=== PATIENT | female | born 1935 | race Caucasian/White ===

== ENCOUNTER 2017-09-09 13:26 | Inpatient (IN) | payer OTHER ==
[~2017-09-09] VITALS: Ht 154.9 cm; Wt 46.5 kg
[~2017-09-09 13:26] MED LIST: ACETAMINOPHEN325 M3 PO; ALPRAZOLAM0.5 MG PO; BUPROPION XL300 MG PO; CALCIUM 500 WI1 EAC2 PO; CHILD ASPIRIN81 M1 PO; CLARITIN,ALAVAR10 MG PO; FLOVENT 11120 INHALA IH; LOVASTATIN20 MG PO; LUMIGAN 0.50 DROP/22 BOTH EYES; NEXIUM40 MG PO; ONDANSETRON ODT4 MG PO; PRISTIQ50 MG PO; QUETIAPINE FUM300 MG PO; VENLAFAXINE HCL75 M3 PO; VENTOLIN HFA18 GM IH; XANAX0.5 MG PO; ZOFRAN4 MG PO; [UNRECOGNIZED DRUG - OTHER] BOTH EYES
[2017-09-09 14:14] LABS: HEMATOCRIT 43.2 % (36.0-46.0); MCH 30.9 PG (29.0-34.0); MCHC 33.6 G/DL (30.0-36.0); MCV 91.9 FL (83-99); MEAN PLAT.VOLUME 9.2 uM^3 (9.5-12.4); PLATELET COUNT 240 K/uL (156-360); RBC DIS.WIDTH-CV 13.2 % (11.8-14.6); RBC DIS.WIDTH-SD 45.1 % (39-53); WHITE BLOOD COUNT 8.6 K/uL (4.1-10.2)
[2017-09-09 14:21] LABS: CHLORIDE 101 mEq/L (99-109); POTASSIUM 3.5 mEq/L (3.7-5.4)
[2017-09-09 14:22] LABS: SODIUM 138 mEq/L (136-147)
[2017-09-09 14:23] LABS: GLUCOSE 115 mg/dL (70-99)
[2017-09-09 14:25] LABS: ANION GAP 9 MEQ/L (2-14)
[2017-09-09 14:27] LABS: GFR ESTIMATE (CALCULATED) > 59 mL/min/
[2017-09-09 14:28] LABS: UREA NITROGEN (BUN) 6 mg/dL (9-23)
[2017-09-09 15:29] LABS: ADD MIUA? NO; BILIRUBIN NEGATIVE; BLOOD NEGATIVE; COLOR YELLOW ((YELLOW)); GLUCOSE (STRIP) NEGATIVE; KETONES 5; LEUKOCYTES NEGATIVE; NITRITE NEGATIVE; PROTEIN (STRIP) NEGATIVE; SPECIFIC GRAVITY 1.006 (1.000-1.030); UCUL ADDED? NO; UROBILINOGEN 0.2 MG/DL (0.2-1.0)
[2017-09-09] MEDS ORDERED: BENZONATATE100 MG PO (20:26)
[2017-09-09] MEDS ORDERED: DOMP10T PO (20:27)
[2017-09-09 23:03] LABS: LIPASE 15 U/L (1.0-51.0)
[2017-09-09 23:38] VITALS: BP 159/84
[2017-09-10 04:04] VITALS: BP 126/77
[2017-09-10 06:14] LABS: HEMATOCRIT 40.2 % (36.0-46.0); MCH 31.2 PG (29.0-34.0); MCHC 33.3 G/DL (30.0-36.0); MCV 93.5 FL (83-99); MEAN PLAT.VOLUME 9.6 uM^3 (9.5-12.4); PLATELET COUNT 207 K/uL (156-360); RBC DIS.WIDTH-CV 13.4 % (11.8-14.6); RBC DIS.WIDTH-SD 46.1 % (39-53); WHITE BLOOD COUNT 6.4 K/uL (4.1-10.2)
[2017-09-10 06:39] LABS: ALKALINE PHOSPHATASE 58 IU/L (3-129); ANION GAP 7 MEQ/L (2-14); CHLORIDE 104 MEQ/L (99-109); GFR ESTIMATE (CALCULATED) > 59 mL/min/; GLUCOSE 75 mg/dL (70-99); HDL CHOLESTEROL 49 MG/DL (Desirable>=50); LDL CHOLESTEROL 60 mg/dL (Desirable<100); NON-HDL CHOLESTEROL 77 mg/dL (Desirable<160); POTASSIUM 3.7 MEQ/L (3.7-5.4); SAMPLE HEMOLYSIS CHECK 0; SAMPLE ICTERIC CHECK 0; SAMPLE LIPEMIA CHECK 0; SODIUM 143 MEQ/L (136-147); TOTAL BILIRUBIN 0.6 MG/DL (0.0-1.0); TOTAL CHOLESTEROL 126 mg/dL (Desirable<200); TRIGLYCERIDES 87 MG/DL (Normal: <150); UREA NITROGEN (BUN) 5 mg/dL (9-23)
[2017-09-10 07:01] LABS: Estimated Average Glucose 117 mg/dL (70-123); HEMOGLOBIN A1c (GLYCOHEMOGLOB) 5.7 % HGB (Below 5.7)
[2017-09-10 07:39] VITALS: BP 132/80
[2017-09-10 07:52] LABS: ERTH.SED.RATE 4 MM/HR (0-30)
[2017-09-10 09:41] LABS: LYME DISEASE SEROLOGY SCREEN NEGATIVE (NEGATIVE); TREPONEMA ANTIBODY NEGATIVE (NEGATIVE)
[2017-09-10 12:18] VITALS: BP 159/91
[2017-09-10 16:00] VITALS: BP 144/91
[2017-09-10 19:16] VITALS: BP 145/85
[2017-09-11 00:04] VITALS: BP 145/85
[2017-09-11 07:17] VITALS: BP 173/87
[2017-09-11 10:39] VITALS: BP 128/79
[2017-09-11 15:10] VITALS: BP 136/94
[2017-09-11 23:54] VITALS: BP 137/88
[2017-09-12 07:49] VITALS: BP 149/93
[2017-09-12 15:30] VITALS: BP 158/80
[2017-09-13 00:12] VITALS: BP 110/66
[2017-09-13 07:53] VITALS: BP 130/65
[2017-09-13 16:18] VITALS: BP 137/77
[2017-09-13 23:39] VITALS: BP 137/83
[2017-09-14 07:00] LABS: HEMATOCRIT 43.9 % (36.0-46.0); MCH 30.4 PG (29.0-34.0); MCHC 32.6 G/DL (30.0-36.0); MCV 93.2 FL (83-99); MEAN PLAT.VOLUME 9.5 uM^3 (9.5-12.4); RBC DIS.WIDTH-CV 13.4 % (11.8-14.6); RBC DIS.WIDTH-SD 46.2 % (39-53); RED BLOOD COUNT 4.71 M/uL (3.80-5.20); WHITE BLOOD COUNT 7.2 K/uL (4.1-10.2)
[2017-09-14 07:18] LABS: ANION GAP 7 MEQ/L (2-14); CHLORIDE 105 MEQ/L (99-109); GFR ESTIMATE (CALCULATED) > 59 mL/min/; GLUCOSE 99 mg/dL (70-99); SAMPLE HEMOLYSIS CHECK 0; SAMPLE ICTERIC CHECK 0; SAMPLE LIPEMIA CHECK 0; SODIUM 144 MEQ/L (136-147); UREA NITROGEN (BUN) 8 mg/dL (9-23)
[2017-09-14 07:28] LABS: PLATELET COUNT 280 K/uL (156-360)
[2017-09-14 07:33] VITALS: BP 129/75
[2017-09-14 16:09] VITALS: BP 141/93
[2017-09-15 00:04] VITALS: BP 130/73
[2017-09-15 06:53] VITALS: BP 127/81
[2017-09-15 15:14] VITALS: BP 119/68
[2017-09-16 00:07] VITALS: BP 130/81
[2017-09-16 06:57] VITALS: BP 115/81
[2017-09-16 15:17] VITALS: BP 134/86
[2017-09-16 23:49] VITALS: BP 137/86
[2017-09-17 07:51] VITALS: BP 111/74
[2017-09-17 16:28] VITALS: BP 146/92
[2017-09-18 00:05] VITALS: BP 119/72
[2017-09-18 07:10] VITALS: BP 124/78
[2017-09-18 15:15] VITALS: BP 160/99
[2017-09-19 00:39] VITALS: BP 137/73
[2017-09-19 07:07] VITALS: BP 137/83
[2017-09-19 15:26] VITALS: BP 129/76
[2017-09-20 00:26] VITALS: BP 110/69
[2017-09-20 08:03] VITALS: BP 132/76
[2017-09-20 17:26] VITALS: BP 141/88
[2017-09-20 23:36] VITALS: BP 134/82
[2017-09-21 07:50] VITALS: BP 131/73
[2017-09-21] MEDS ORDERED: DONEPEZIL HCL5 MG PO (11:23)
[2017-09-21] MEDS ORDERED: QUETIAPINE FUM100 MG PO (11:24)
[2017-09-21] MEDS ORDERED: POLYETHYLENE GL17 GM PO (11:26)
[2017-09-21] MEDS ORDERED: FAMOTIDINE20 MG PO (11:26)
[2017-09-21 17:59] VITALS: BP 124/74
[2017-09-22 00:23] VITALS: BP 139/83
[2017-09-22 08:48] VITALS: BP 141/79
[2017-09-22 16:34] VITALS: BP 127/72
[2017-09-22 23:24] VITALS: BP 134/69
[2017-09-23 08:00] VITALS: BP 128/83
[2017-09-23 16:12] VITALS: BP 138/79
[2017-09-24 00:02] VITALS: BP 120/85
[2017-09-24 08:00] VITALS: BP 125/84
[2017-09-24] MEDS ORDERED: BUPROPION XL300 MG PO (11:34)
[2017-09-24] MEDS ORDERED: VENLAFAXINE HCL75 M3 PO (11:34)
[2017-09-24] MEDS ORDERED: [UNRECOGNIZED DRUG - OTHER] BOTH EYES (11:34)
[2017-09-24] MEDS ORDERED: DOMP10T PO (11:34)
[2017-09-24] MEDS ORDERED: LUMIGAN 0.50 DROP/22 BOTH EYES (11:34)
[2017-09-24] MEDS ORDERED: BENZONATATE100 MG PO (11:34)
[2017-09-24] MEDS ORDERED: POLYETHYLENE GL17 GM PO (11:34)
[2017-09-24] MEDS ORDERED: LOVASTATIN20 MG PO (11:34)
[2017-09-24] MEDS ORDERED: FAMOTIDINE20 MG PO (11:34)
[2017-09-24] MEDS ORDERED: DONEPEZIL HCL5 MG PO (11:34)
[2017-09-24] MEDS ORDERED: QUETIAPINE FUM100 MG PO (11:34)
[2017-09-24] MEDS ORDERED: ONDANSETRON ODT4 MG PO (11:34)
[2017-09-24 16:04] VITALS: BP 136/91
[2017-09-25] MEDS ORDERED: POLYETHYLENE GL17 GM PO (16:08)
[2017-09-25] MEDS ORDERED: VENLAFAXINE HCL75 M3 PO (16:10)
[2017-09-25] MEDS ORDERED: LUMIGAN 0.50 DROP/22 BOTH EYES (16:12)
[2017-09-25] MEDS ORDERED: DOMP10T PO (16:13)
[2017-09-25] MEDS ORDERED: ONDANSETRON ODT4 MG PO (16:20)
[2017-09-25] MEDS ORDERED: REFRESH TEARS15 ML BOTH EYES (16:21)
== END 2017-09-24 16:09 | disposition home or self-care (01) | DRG 72 ==
LOC: EME 13:26 → EDOF 20:30 → 5SOUTH 20:30 → EDOF 20:30 → ENRESERV 20:33 → CANRESERV 20:50 → ENRESERV 21:27 → EDOF 23:18 → 5SOUTH 23:18 → ENPENDDIS 09-24 → 5SOUTH 09-24 16:09
PROVIDERS: Emergency Medicine; Physician Assistant; Physician Assistant Medical
DX: I67.9 Cerebrovascular disease, unspecified (principal); F01.50 Vascular dementia, unspecified severity, without behavioral disturbance, psychotic disturbance, mood disturbance, and anxiety; R27.0 Ataxia, unspecified; F32.9 Major depressive disorder, single episode, unspecified; E78.5 Hyperlipidemia, unspecified; G89.29 Other chronic pain; M54.9 Dorsalgia, unspecified; I10 Essential (primary) hypertension; J45.909 Unspecified asthma, uncomplicated; K21.9 Gastro-esophageal reflux disease without esophagitis; K22.4 Dyskinesia of esophagus; F41.9 Anxiety disorder, unspecified; G43.909 Migraine, unspecified, not intractable, without status migrainosus; R11.0 Nausea; Z79.82 Long term (current) use of aspirin; Z88.2 Allergy status to sulfonamides; Z88.0 Allergy status to penicillin; Z88.5 Allergy status to narcotic agent; Z91.040 Latex allergy status
CPT/HCPCS: 70450; 70544; 70551; 71010; 71020; 74220; 80048; 80053; 80061; 80306 90; 81003; 82607; 82746; 83036; 83605; 83690; 84443; 85027; 85651; 86618; 86780; 90839; 92610 GN; 93005; 93306; 93880; 97530 GO; 99281; 99285; G0378; J1650; J1885; J2060; J2405; J2765

== ENCOUNTER 2017-09-25 11:45 | Inpatient (IN) | payer OTHER ==
[~2017-09-25] VITALS: Ht 160 cm; Wt 44.8 kg
[~2017-09-25 11:45] MED LIST changes: +BENZONATATE100 MG PO; +DOMP10T PO; +DONEPEZIL HCL5 MG PO; +FAMOTIDINE20 MG PO; +POLYETHYLENE GL17 GM PO; +QUETIAPINE FUM100 MG PO
[2017-09-25 13:08] LABS: BASOPHIL COUNT 0.1 K/uL (0-0.1); EOSINOPHIL (%) 0.3 % (0-5); HEMATOCRIT 43.7 % (36.0-46.0); IMMATURE GRANULOCYTE (%) 0.5 % (0.0-0.7); IMMATURE GRANULOCYTE COUNT 0.1 K/uL; INSTRUMENT ABS NEUTROPHIL CT 7.9 K/uL; LYMPHOCYTE COUNT 1.4 K/uL (1.0-2.8); MCH 30.8 PG (29.0-34.0); MCHC 33.2 G/DL (30.0-36.0); MCV 92.8 FL (83-99); MEAN PLAT.VOLUME 9.3 uM^3 (9.5-12.4); MONOCYTE (%) 7.3 % (3-12); MONOCYTE COUNT 0.7 K/uL (0-0.8); NEUTROPHIL COUNT 7.9 K/uL (1.8-6.4); PLATELET COUNT 294 K/uL (156-360); RBC DIS.WIDTH-CV 13.5 % (11.8-14.6); RBC DIS.WIDTH-SD 45.9 % (39-53); RED BLOOD COUNT 4.71 M/uL (3.80-5.20); WHITE BLOOD COUNT 10.1 K/uL (4.1-10.2)
[2017-09-25 13:12] LABS: INTER. NORMALIZED RATIO 0.9; PROTHROMBIN TIME 10.7 SEC (10.2-12.9)
[2017-09-25 13:20] LABS: CHLORIDE 101 mEq/L (99-109); POTASSIUM 4.1 mEq/L (3.7-5.4); SODIUM 139 mEq/L (136-147)
[2017-09-25 13:22] LABS: GLUCOSE 120 mg/dL (70-99)
[2017-09-25 13:23] LABS: ANION GAP 12 MEQ/L (2-14)
[2017-09-25 13:26] LABS: GFR ESTIMATE (CALCULATED) > 59 mL/min/
[2017-09-25 13:27] LABS: UREA NITROGEN (BUN) 13 mg/dL (9-23)
[2017-09-25] MEDS ORDERED: POLYETHYLENE GL17 GM PO (16:08)
[2017-09-25] MEDS ORDERED: VENLAFAXINE HCL75 M3 PO (16:10)
[2017-09-25] MEDS ORDERED: LUMIGAN 0.50 DROP/22 BOTH EYES (16:12)
[2017-09-25] MEDS ORDERED: DOMP10T PO (16:13)
[2017-09-25] MEDS ORDERED: ONDANSETRON ODT4 MG PO (16:20)
[2017-09-25] MEDS ORDERED: REFRESH TEARS15 ML BOTH EYES (16:21)
[2017-09-25 21:34] VITALS: BP 155/65
[2017-09-25 21:51] VITALS: BP 155/65
[2017-09-26 04:04] VITALS: BP 102/61
[2017-09-26 07:02] LABS: HEMATOCRIT 30.1 % (36.0-46.0); MCH 31.8 PG (29.0-34.0); MCHC 33.6 G/DL (30.0-36.0); MCV 94.7 FL (83-99); PLATELET COUNT 221 K/uL (156-360); RED BLOOD COUNT 3.18 M/uL (3.80-5.20); WHITE BLOOD COUNT 10.4 K/uL (4.1-10.2)
[2017-09-26 07:29] LABS: ANION GAP 7 MEQ/L (2-14); CHLORIDE 107 MEQ/L (99-109); GFR ESTIMATE (CALCULATED) > 59 mL/min/; GLUCOSE 116 mg/dL (70-99); POTASSIUM 4.5 MEQ/L (3.7-5.4); SAMPLE HEMOLYSIS CHECK 0; SAMPLE ICTERIC CHECK 0; SAMPLE LIPEMIA CHECK 0; SODIUM 141 MEQ/L (136-147); UREA NITROGEN (BUN) 14 mg/dL (9-23)
[2017-09-26 08:09] VITALS: BP 114/64
[2017-09-26 11:43] VITALS: BP 119/72
[2017-09-26 15:38] VITALS: BP 143/63
[2017-09-26 19:59] VITALS: BP 113/56
[2017-09-27] VITALS (13 sets, daily range): BP systolic 108–148; BP diastolic 52–81
[2017-09-27 05:34] LABS: MCH 31.4 PG (29.0-34.0); MCHC 32.5 G/DL (30.0-36.0); MCV 96.6 FL (83-99); MEAN PLAT.VOLUME 10.1 uM^3 (9.5-12.4); PLATELET COUNT 156 K/uL (156-360); RBC DIS.WIDTH-CV 13.9 % (11.8-14.6); RBC DIS.WIDTH-SD 49.3 % (39-53); WHITE BLOOD COUNT 9.5 K/uL (4.1-10.2)
[2017-09-27 05:58] LABS: ANION GAP 6 MEQ/L (2-14); CHLORIDE 111 MEQ/L (99-109); GFR ESTIMATE (CALCULATED) > 59 mL/min/; GLUCOSE 163 mg/dL (70-99); POTASSIUM 4.2 MEQ/L (3.7-5.4); SAMPLE HEMOLYSIS CHECK 0; SAMPLE ICTERIC CHECK 0; SAMPLE LIPEMIA CHECK 0; SODIUM 141 MEQ/L (136-147); UREA NITROGEN (BUN) 20 mg/dL (9-23)
[2017-09-27 06:53] LABS: RED BLOOD COUNT 2.07 M/uL (3.80-5.20)
[2017-09-28 00:10] VITALS: BP 106/52
[2017-09-28 04:00] VITALS: BP 122/58
[2017-09-28 07:35] VITALS: BP 105/59
[2017-09-28 07:39] LABS: NRBC (%) 0.4 /100 WBC (0-0)
[2017-09-28 08:04] LABS: HEMATOCRIT 23.5 % (36.0-46.0); MCH 29.7 PG (29.0-34.0); MCHC 32.8 G/DL (30.0-36.0); RBC DIS.WIDTH-CV 15.4 % (11.8-14.6); RBC DIS.WIDTH-SD 51.5 % (39-53); WHITE BLOOD COUNT 9.2 K/uL (4.1-10.2)
[2017-09-28 08:06] LABS: MCV 90.7 FL (83-99); RED BLOOD COUNT 2.59 M/uL (3.80-5.20)
[2017-09-28 08:08] LABS: PLATELET COUNT 109 K/uL (156-360)
[2017-09-28 09:01] LABS: ANION GAP 4 MEQ/L (2-14); CHLORIDE 112 MEQ/L (99-109); GFR ESTIMATE (CALCULATED) > 59 mL/min/; POTASSIUM 3.5 MEQ/L (3.7-5.4); SAMPLE HEMOLYSIS CHECK 0; SAMPLE ICTERIC CHECK 0; SAMPLE LIPEMIA CHECK 0; SODIUM 142 MEQ/L (136-147); UREA NITROGEN (BUN) 12 mg/dL (9-23)
[2017-09-28 09:06] LABS: GLUCOSE 102 mg/dL (70-99)
[2017-09-28 12:17] VITALS: BP 123/61
[2017-09-28 13:58] LABS: HEMATOCRIT 26.4 % (36.0-46.0); MCV 93.3 FL (83-99)
[2017-09-28 16:48] VITALS: BP 135/62
[2017-09-28 18:59] LABS: HEMATOCRIT 26.1 % (36.0-46.0); MCV 93.5 FL (83-99)
[2017-09-28 20:17] VITALS: BP 117/56
[2017-09-29 00:10] VITALS: BP 113/59
[2017-09-29 04:00] VITALS: BP 129/60
[2017-09-29 07:47] LABS: HEMATOCRIT 24.7 % (36.0-46.0); MCV 92.9 FL (83-99)
[2017-09-29 10:01] VITALS: BP 136/63
[2017-09-29 12:55] VITALS: BP 138/70
[2017-09-29 16:46] LABS: HEMATOCRIT 26.9 % (36.0-46.0); MCH 30.7 PG (29.0-34.0); MCHC 33.5 G/DL (30.0-36.0); MCV 91.8 FL (83-99); MEAN PLAT.VOLUME 9.9 uM^3 (9.5-12.4); NRBC (%) 0.6 /100 WBC (0-0); RBC DIS.WIDTH-SD 49.5 % (39-53); RED BLOOD COUNT 2.93 M/uL (3.80-5.20); WHITE BLOOD COUNT 12.8 K/uL (4.1-10.2)
[2017-09-29 16:47] LABS: PLATELET COUNT 197 K/uL (156-360)
[2017-09-29 17:08] LABS: ANION GAP 5 MEQ/L (2-14); CHLORIDE 108 MEQ/L (99-109); GFR ESTIMATE (CALCULATED) > 59 mL/min/; GLUCOSE 138 mg/dL (70-99); POTASSIUM 3.7 MEQ/L (3.7-5.4); SAMPLE HEMOLYSIS CHECK 0; SAMPLE ICTERIC CHECK 0; SAMPLE LIPEMIA CHECK 0; SODIUM 138 MEQ/L (136-147); UREA NITROGEN (BUN) 8 mg/dL (9-23)
[2017-09-29 17:29] LABS: TROP-I INTERPRETATION NEGATIVE; TROPONIN-I 0.08 ng/mL (0.0-0.30)
[2017-09-29 18:09] VITALS: BP 1301/66
[2017-09-29 19:42] VITALS: BP 131/83
[2017-09-29 20:24] LABS: ADD MIUA? YES; BILIRUBIN NEGATIVE; BLOOD NEGATIVE; COLOR YELLOW ((YELLOW)); GLUCOSE (STRIP) NEGATIVE; KETONES NEGATIVE; LEUKOCYTES TRACE; NITRITE POSITIVE; PROTEIN (STRIP) NEGATIVE; SPECIFIC GRAVITY 1.015 (1.000-1.030); UROBILINOGEN 0.2 MG/DL (0.2-1.0)
[2017-09-29 20:37] LABS: BACTERIA 1+ /HPF; EPITHELIAL CELLS RARE /HPF; MUCUS 1+ /LPF; RED BLOOD CELLS 0-5 /HPF (0-5)
[2017-09-30] VITALS (7 sets, daily range): BP systolic 99–141; BP diastolic 55–77
[2017-09-30 06:46] LABS: HEMATOCRIT 23.4 % (36.0-46.0); MCH 29.9 PG (29.0-34.0); MCHC 32.1 G/DL (30.0-36.0); MCV 93.2 FL (83-99); NRBC (%) 0.3 /100 WBC (0-0); PLATELET COUNT 167 K/uL (156-360); RBC DIS.WIDTH-CV 15.2 % (11.8-14.6); RBC DIS.WIDTH-SD 50.2 % (39-53); RED BLOOD COUNT 2.51 M/uL (3.80-5.20); WHITE BLOOD COUNT 7.9 K/uL (4.1-10.2)
[2017-09-30 07:10] LABS: ANION GAP 6 MEQ/L (2-14); CHLORIDE 108 MEQ/L (99-109); GFR ESTIMATE (CALCULATED) > 59 mL/min/; POTASSIUM 3.8 MEQ/L (3.7-5.4); SAMPLE HEMOLYSIS CHECK 0; SAMPLE ICTERIC CHECK 0; SAMPLE LIPEMIA CHECK 0; SODIUM 142 MEQ/L (136-147); UREA NITROGEN (BUN) 7 mg/dL (9-23)
[2017-09-30 07:15] LABS: GLUCOSE 88 mg/dL (70-99)
[2017-09-30 08:06] LABS: MAGNESIUM 1.9 mg/dl (1.3-2.7)
[2017-09-30 09:22] LABS: HEMATOCRIT 23.7 % (36.0-46.0); MCV 93.7 FL (83-99)
[2017-10-01 04:14] VITALS: BP 105/56
[2017-10-01 07:50] LABS: EOSINOPHIL (%) 2.6 % (0-5); EOSINOPHIL COUNT 0.2 K/uL (0-0.3); HEMATOCRIT 23.7 % (36.0-46.0); IMMATURE GRANULOCYTE (%) 0.8 % (0.0-0.7); IMMATURE GRANULOCYTE COUNT 0.1 K/uL; INSTRUMENT ABS NEUTROPHIL CT 5.2 K/uL; LYMPHOCYTE COUNT 1.7 K/uL (1.0-2.8); MCH 30.3 PG (29.0-34.0); MCHC 32.1 G/DL (30.0-36.0); MCV 94.4 FL (83-99); MEAN PLAT.VOLUME 9.7 uM^3 (9.5-12.4); MONOCYTE (%) 10.3 % (3-12); MONOCYTE COUNT 0.8 K/uL (0-0.8); NEUTROPHIL (%) 64.6 % (45-76); NEUTROPHIL COUNT 5.2 K/uL (1.8-6.4); NRBC (%) 0.3 /100 WBC (0-0); PLATELET COUNT 212 K/uL (156-360); RBC DIS.WIDTH-CV 15.2 % (11.8-14.6); RBC DIS.WIDTH-SD 50.8 % (39-53); RED BLOOD COUNT 2.51 M/uL (3.80-5.20)
[2017-10-01 08:16] LABS: ANION GAP 6 MEQ/L (2-14); CHLORIDE 105 MEQ/L (99-109); GFR ESTIMATE (CALCULATED) > 59 mL/min/; GLUCOSE 85 mg/dL (70-99); SAMPLE HEMOLYSIS CHECK 0; SAMPLE ICTERIC CHECK 0; SAMPLE LIPEMIA CHECK 0; SODIUM 142 MEQ/L (136-147); UREA NITROGEN (BUN) 9 mg/dL (9-23)
[2017-10-01 08:41] VITALS: BP 103/60
[2017-10-01 12:40] VITALS: BP 100/59
[2017-10-01 15:51] VITALS: BP 119/57
[2017-10-01 20:20] VITALS: BP 113/80
[2017-10-01 23:24] VITALS: BP 134/68
[2017-10-02 03:24] VITALS: BP 128/67
[2017-10-02 07:12] LABS: HEMATOCRIT 25.9 % (36.0-46.0); MCH 30.7 PG (29.0-34.0); MCV 95.9 FL (83-99); MEAN PLAT.VOLUME 9.5 uM^3 (9.5-12.4); NRBC (%) 0.4 /100 WBC (0-0); RBC DIS.WIDTH-CV 15.2 % (11.8-14.6); RBC DIS.WIDTH-SD 51.9 % (39-53); WHITE BLOOD COUNT 8.6 K/uL (4.1-10.2)
[2017-10-02 07:16] LABS: PLATELET COUNT 286 K/uL (156-360)
[2017-10-02 08:21] VITALS: BP 129/74
[2017-10-02] MEDS ORDERED: ELIQUIS2.5 MG PO (10:58)
[2017-10-02] MEDS ORDERED: TRAMADOL HCL50 MG PO (11:00)
[2017-10-02] MEDS ORDERED: ALPRAZOLAM0.5 MG PO (11:00)
[2017-10-02] MEDS ORDERED: ASPIRIN EC325 MG PO (11:03)
[2017-10-02] MEDS ORDERED: CEFTIN500 MG PO (11:08)
[2017-10-02 12:10] VITALS: BP 123/60
[2017-10-02 15:51] VITALS: BP 128/69
== END 2017-10-02 18:54 | DRG 481 ==
LOC: EME 11:45 → EDOF 15:35 → 3EAST 15:35 → ENRESERV 15:36 → 3EAST 19:48
PROVIDERS: Emergency Medicine; Hospitalist; Internal Medicine; Orthopaedic Surgery; Physician Assistant
PROC: 0QS734Z Reposition Left Upper Femur with Internal Fixation Device, Percutaneous Approach (ICD-10-PCS; principal; 2017-09-25)
PROC: 30233N1 Transfusion of Nonautologous Red Blood Cells into Peripheral Vein, Percutaneous Approach (ICD-10-PCS; 2017-09-27)
DX: S72.142A Displaced intertrochanteric fracture of left femur, initial encounter for closed fracture (principal); D62 Acute posthemorrhagic anemia; Z68.1 Body mass index [BMI] 19.9 or less, adult; J90 Pleural effusion, not elsewhere classified; J98.11 Atelectasis; I51.9 Heart disease, unspecified; M48.54XA Collapsed vertebra, not elsewhere classified, thoracic region, initial encounter for fracture; M41.9 Scoliosis, unspecified; E86.0 Dehydration; J45.909 Unspecified asthma, uncomplicated; F41.9 Anxiety disorder, unspecified; R00.0 Tachycardia, unspecified; E83.51 Hypocalcemia; F32.9 Major depressive disorder, single episode, unspecified; I10 Essential (primary) hypertension; E78.5 Hyperlipidemia, unspecified; R09.02 Hypoxemia; H04.123 Dry eye syndrome of bilateral lacrimal glands; Z88.6 Allergy status to analgesic agent; R11.0 Nausea; K59.00 Constipation, unspecified; R51 Headache; W01.0XXA Fall on same level from slipping, tripping and stumbling without subsequent striking against object, initial encounter; R33.9 Retention of urine, unspecified; Z88.8 Allergy status to other drugs, medicaments and biological substances; Z88.0 Allergy status to penicillin; Z91.040 Latex allergy status; Z88.2 Allergy status to sulfonamides; Z91.013 Allergy to seafood; Y93.01 Activity, walking, marching and hiking; Y92.89 Other specified places as the place of occurrence of the external cause; F03.90 Unspecified dementia, unspecified severity, without behavioral disturbance, psychotic disturbance, mood disturbance, and anxiety
CPT/HCPCS: 71275; 73502; 76000; 80048; 81003; 82040; 82272; 83735; 84484; 85014; 85018; 85025; 85027; 85610; 85730; 86850; 86900; 86901; 86920; 87077; 87086; 87186; 93005; 94799; 97530 GP; 99281; 99285; C1713; J1100; J1650; J2060; J2270; J2405; J2710; J3010; J7030; J7040; J7050; J7120; P9016

== ENCOUNTER 2018-03-20 16:08 | Emergency (ER) | payer OTHER ==
[~2018-03-20] VITALS: Ht 157.5 cm; Wt 39.4 kg
[~2018-03-20 16:08] MED LIST changes: +ASPIRIN EC325 MG PO; +CEFTIN500 MG PO; +ELIQUIS2.5 MG PO; +REFRESH TEARS15 ML BOTH EYES; +TRAMADOL HCL50 MG PO
[2018-03-20 17:39] LABS: HEMATOCRIT 34.2 % (36.0-46.0); HEMOGLOBIN 11.5 G/DL (11.9-15.5); MCH 32.5 PG (29.0-34.0); MCHC 33.6 G/DL (30.0-36.0); MCV 96.6 FL (83-99); PLATELET COUNT 224 K/uL (156-360); RBC DIS.WIDTH-SD 49.1 % (39-53); RED BLOOD COUNT 3.54 M/uL (3.80-5.20); WHITE BLOOD COUNT 6.4 K/uL (4.1-10.2)
[2018-03-20 17:49] LABS: CHLORIDE 108 mEq/L (99-109); POTASSIUM 3.9 mEq/L (3.7-5.4); SODIUM 141 mEq/L (136-147)
[2018-03-20 17:51] LABS: GLUCOSE 80 mg/dL (70-99)
[2018-03-20 17:55] LABS: CREATININE 0.6 mg/dL (0.6-1.3); GFR ESTIMATE (CALCULATED) > 59 mL/min/
[2018-03-20 17:56] LABS: UREA NITROGEN (BUN) 17 mg/dL (9-23)
[2018-03-20 21:23] VITALS: BP 139/76
== END 2018-03-20 21:57 ==
LOC: EME 16:08
PROVIDERS: Emergency Medicine
DX: S22.41XA Multiple fractures of ribs, right side, initial encounter for closed fracture (principal); X58.XXXA Exposure to other specified factors, initial encounter; E86.0 Dehydration; F32.9 Major depressive disorder, single episode, unspecified; G30.9 Alzheimer's disease, unspecified; F02.80 Dementia in other diseases classified elsewhere, unspecified severity, without behavioral disturbance, psychotic disturbance, mood disturbance, and anxiety; E78.5 Hyperlipidemia, unspecified; K21.9 Gastro-esophageal reflux disease without esophagitis; J45.909 Unspecified asthma, uncomplicated; G43.909 Migraine, unspecified, not intractable, without status migrainosus; F41.9 Anxiety disorder, unspecified; Z91.040 Latex allergy status; Z88.5 Allergy status to narcotic agent; Z88.2 Allergy status to sulfonamides; Z88.0 Allergy status to penicillin; Z88.8 Allergy status to other drugs, medicaments and biological substances; Z91.013 Allergy to seafood
CPT/HCPCS: 71045; 73501; 80048; 81003; 85027; 99281; 99285; J1630; J7030